=== PATIENT | male | born 1970 | race Caucasian/White ===

== ENCOUNTER 2021-10-20 18:38 | Emergency (ER) | payer MEDICARE ==
[~2021-10-20] VITALS: Ht 185.4 cm; Wt 77.1 kg
[~2021-10-20 18:38] MED LIST: CEPH500 PO; CRUTCH3 USE; HYDACE5 PO; HYDACE5325 PO; HYDR1TAB94 PO; IBUP600 PO; IBUP800 PO; NAPR500 PO; NAPR550 PO; OXYACE5T PO; PENVK500 PO; RXNAPNA550 PO; RXOXYACE PO; TRAM50 PO
== END 2021-10-20 19:45 | disposition home or self-care (01) ==
LOC: ER 18:38
DX: S01.81XA Laceration without foreign body of other part of head, initial encounter (principal); S40.812A Abrasion of left upper arm, initial encounter; F17.220 Nicotine dependence, chewing tobacco, uncomplicated; W18.30XA Fall on same level, unspecified, initial encounter
CPT/HCPCS: 12013; 90714; 99283-25

== ENCOUNTER 2023-02-26 10:19 | Inpatient (IN) | payer MEDICARE, OTHER ==
[2023-02-26] VITALS (42 sets, daily range): BP systolic 66–124; BP diastolic 37–78
[~2023-02-26] VITALS: Ht 182.9 cm; Wt 85.3 kg
[2023-02-26 10:44] LABS: Hemoglobin 12.3 g/dL (13.5-17.5); Mean Corpuscular HGB 33.9 pg (26.0-34.0); Mean Corpuscular HGB Conc 34.2 g/dL (31.5-36.5); Mean Corpuscular Volume 99 fL (80-100); Mean Platelet Volume 10.8 fL (9.1-12.4); RDW Coefficient Variation 12.7 % (11.7-14.2); RDW Standard Deviation 46.5 fL (35.1-46.3); Red Blood Cell Count 3.63 M/mm3 (4.30-5.90); White Blood Cell Count 20.03 K/mm3 (4.00-11.30)
[2023-02-26 11:04] LABS: Albumin, Blood 2.6 g/dL (3.4-5.0); Albumin/Globulin Ratio 0.8 (0.8-1.8); Bilirubin, Total 0.4 mg/dL (0.1-1.0); Bun/Creatinine Ratio 10.2 (12.0-20.0); Calcium, Blood 6.8 mg/dL (8.5-10.1); Creatinine, Blood 4.61 mg/dL (0.60-1.20); Globulin, Blood 3.4 g/dL (2.2-4.0); Potassium, Blood 4.6 mmol/L (3.5-5.5)
[2023-02-26 11:08] LABS: Platelet Count 38 K/mm3 (150-400)
[2023-02-26 12:05] LABS: International Normalized Ratio 1.17; Prothrombin Time Results 12.2 Sec (9.7-11.5)
[2023-02-26 12:40] LABS: BAND PERCENT MAN 22 % (0-8); BASOPHILS PERCENT MAN 0 % (0-2); EOSINOPHILS PERCENT MAN 0 % (0-6); LYMPHOCYTES PERCENT MAN 2 % (21-46); METAMYELOCYTE PERCENT MAN 6 % (0-0); MONOCYTES PERCENT MAN 5 % (4-13); NEUTROPHILS ABSOLUTE MAN 17.42 K/mm3 (1.96-9.15); SEG NEUTROPHILS PERCENT MAN 65 % (41-73); TOTAL CELLS COUNTED 100
--- NOTE | 2023-02-26 14:00 | NUR ---
INITIAL ASSESSMENT PATIENT ARRIVED TO UNIT AT 1340 FROM ER. PATIENT ALERT AND ORIENTED X 4. PATIENT HAS TEMP OF 99.1 DEGREES FAHRENHEIT. PATIENT WEAK BUT ABLE TO MOVE ALL EXTREMITIES. PATIENT STATES HE HAS ALL OVER BODY DISCOMFORT AND ACHES. PATIENT SATTING 90% AND GREATER ON RA. LUNGS CLEAR THROUGHOUT. PATIENT IN ST, HR IN THE LOW 100S. SBP 80S TO 90S. PATIENT ON LEVOPHED AT 18 MCG/ MINUTE. PATIENT COMPLAINS OF SLIGHT NAUSEA. PATIENT'S GLANS AND SHAFT OF PENIS PURPLE, FIRM AND SWOLLEN FROM A BOTTLE BEING STUCK ON IT; ER CUT BOTTLE OFF. PIC PLACED IN CHART. DRESSING PLACED TO PENIS. PATIENT STATES THAT COLOR HAS IMPROVED SINCE PLASTIC BOTTLE CUT OFF. PATIENT STATES IT HAS BEEN DIFFICULT TO VOID WITH PENIS SWOLLEN. NO VOID YET THIS SHIFT. PATIENT ORIENTED TO UNIT, ROOM AND CALL LIGHT. BED LOW, CALL LIGHT IN REACH, BED ALARM ON. WILL CONTINUE TO MONITOR PATIENT FREQUENTLY THROUGHOUT SHIFT.
[2023-02-26 15:43] LABS: Bun/Creatinine Ratio 11.8 (12.0-20.0); Calcium, Blood 6.5 mg/dL (8.5-10.1); Creatinine, Blood 4.25 mg/dL (0.60-1.20); Potassium, Blood 4.7 mmol/L (3.5-5.5)
--- NOTE | 2023-02-26 18:58 | NUR ---
SHIFT SUMMARY PATIENT REMAINED ALERT AND ORIENTED X 4. PATIENT HAD SLIGHT FEVER WHEN FIRST ARRIVED BUT IS NOW AFEBRILE. PATIENT REMAINS WEAK BUT ABLE TO MOVE ALL EXTREMITIES AND REPOSITION SELF IN BED. PATIENT ON RA WHILE AWAKE AND ON 3 L NC WITH SLEEP. PATIENT ST, HR IN THE LOW 100S. PATIENT MAX 20 MCG/ MINUTE OF LEVOPHED AND ON VASOPRESSIN THIS SHIFT. LEVOPHED AND VASOPRESSIN ARE NOW BOTH ON SB. PATIENT RECEIVED 2 L LR BOLUS THIS SHIFT. NO BM THIS SHIFT. PATIENT VOIDED 300 MLS OF BROWN COLORED URINE. PICS PLACED IN CHART OF PENIS. PENIS DRESSING REMAINS CLEAN AND INTACT. R AC IV INFILTRATED THIS SHIFT; CAUGHT VERY QUICKLY AND REGITINE GIVEN. ABD US AND ECHO PERFORMED THIS SHIFT. BED LOW, CALL LIGHT IN REACH. REPORT WILL BE GIVEN TO ASSUMING ASSET PROTECTION SPECIALIST NURSE SHORTLY.
--- NOTE | 2023-02-26 20:52 | NUR ---
PATIENT AWAKE, A&O X3. DRESSING ON PENIS SATURATED WITH SEROSANG DRAINAGE KERLIX PART OF DRESSING CHANGED, LOOSELY WRAPPED . BLADDER SCAN DONE SHOWING 184 CC URINE. LEVOPHED RESTARTED AT 2 MCG DUE TO HYPOTENSION. PATIENT PASSING LARGE LIQUID ESCALERA BM, PATIENT VERBALIZED THAT HE HAS BEEN HAVING "BEER SHITS". PATIENT REQUESTING SOMETHING TO HELP HIM SLEEP, LIBRIUM PO GIVEN.
[2023-02-26 21:35] LABS: Source, Urine Clean Catch
[2023-02-26 21:43] LABS: Bilirubin, Urine Neg (Neg); Blood, Urine 5+ (Neg); Glucose Qualitative, Urine Neg (Neg); Ketones, Urine Neg (Neg); Leukocyte Esterase, Urine 3+ (Neg); Nitrite, Urine Neg (Neg); Protein, Urine 2+ (Neg); Specific Gravity, Urine 1.015 (1.003-1.022); Urobilinogen, Urine NORM (Normal)
[2023-02-26 21:49] LABS: Appearance, Urine Hazy (Clear); Color, Urine Yellow (P-Yellow)
[2023-02-26 21:51] LABS: Bacteria Mod /hpf; Red Blood Cells, Urine 50-100 /hpf (0-2); Squamous Epithelial Cells Rare /hpf (Few); Transitional Epithelial Cells Few /hpf (0-Rare); White Blood Cells, Urine 50-100 /hpf (0-5)
[2023-02-26 22:00] LABS: U Amphetamine Screen DETECTED; U Barbituate Screen Not Detected; U Benzodiazapine Screen Not Detected; U Buprenorphine Screen Not Detected; U Cannabinoids Screen Not Detected; U Cocaine Screen Not Detected; U Methadone Screen Not Detected; U Methamphetamine Screen DETECTED; U Opiates Screen Not Detected; U Oxycodone Screen Not Detected; U Phencyclidine Screen Not Detected; U Propoxyphene Screen Not Detected
[2023-02-27] VITALS (36 sets, daily range): BP systolic 76–137; BP diastolic 51–82
[2023-02-27 04:38] LABS: Hematocrit 31.5 % (37.0-53.0); Hemoglobin 11.2 g/dL (13.5-17.5); Mean Corpuscular HGB Conc 35.6 g/dL (31.5-36.5); Mean Corpuscular Volume 96 fL (80-100); Mean Platelet Volume 11.7 fL (9.1-12.4); RDW Coefficient Variation 12.9 % (11.7-14.2); RDW Standard Deviation 45.4 fL (35.1-46.3); Red Blood Cell Count 3.29 M/mm3 (4.30-5.90); White Blood Cell Count 14.77 K/mm3 (4.00-11.30)
[2023-02-27 04:43] LABS: Platelet Count 30 K/mm3 (150-400)
[2023-02-27 04:58] LABS: Alanine Aminotransfer (ALT/SGP 48 U/L (12-78); Albumin, Blood 2.3 g/dL (3.4-5.0); Albumin/Globulin Ratio 0.7 (0.8-1.8); Alk Phos 53 U/L (50-136); Anion Gap 13 mmol/L (6-16); Aspartate Aminotrans (AST/SGOT 61 U/L (12-37); Bilirubin, Total 0.4 mg/dL (0.1-1.0); Blood Urea Nitrogen 53 mg/dL (8-24); Bun/Creatinine Ratio 14.6 (12.0-20.0); CO2, Blood 18 mmol/L (21-32); Calcium, Blood 6.9 mg/dL (8.5-10.1); Chloride, Blood 106 mmol/L (98-108); Creatinine, Blood 3.64 mg/dL (0.60-1.20); Globulin, Blood 3.1 g/dL (2.2-4.0); Glomerular Filtration Rate 19 (60-); Glucose, Blood 96 mg/dL (70-99); Potassium, Blood 3.7 mmol/L (3.5-5.5); Sodium, Blood 137 mmol/L (136-145); Total Protein, Blood 5.4 g/dL (6.4-8.2); Vancomycin, Random 12.8 ug/mL
[2023-02-27 05:24] LABS: BAND PERCENT MAN 21 % (0-8); BASOPHILS PERCENT MAN 0 % (0-2); EOSINOPHILS PERCENT MAN 0 % (0-6); LYMPHOCYTES ABSOLUTE MAN 0.59 K/mm3 (0.84-5.20); LYMPHOCYTES PERCENT MAN 4 % (21-46); METAMYELOCYTE ABSOLUTE MAN 0.88 K/mm3 (0.00-0.00); METAMYELOCYTE PERCENT MAN 6 % (0-0); MONOCYTES ABSOLUTE MAN 0.29 K/mm3 (0.16-1.47); MONOCYTES PERCENT MAN 2 % (4-13); MYELOCYTE ABSOLUTE MAN 0.14 K/mm3 (0.00-0.00); MYELOCYTE PERCENT MAN 1 % (0-0); NEUTROPHILS ABSOLUTE MAN 12.84 K/mm3 (1.96-9.15); SEG NEUTROPHILS PERCENT MAN 66 % (41-73); TOTAL CELLS COUNTED 100
--- NOTE | 2023-02-27 06:28 | NUR ---
SUMMARY PATIENT SLEEPING OFF AND ON T/O NIGHT. NIGHT HAS PROGRESSED PATIENT HAS BEEN ABLE TO VOID EASIER. USING URINAL WITH ASSIST TO HELP KEEP DRESSING CD&I. PATIENT HAS HAD LIQUID GREEN STOOL SEVERAL TIMES DURING THE NIGHT, AT TIMES INCONT OF STOOL. PATIENT MEDICATED ONCE WITH LIBRIUM FOR ANXIETY AT THE BEGINNING OF SHIFT. LEVOPHED OFF AND BP MORE STABLE NIGHT PROGRESSED. DRESSING CHANGED ONCE DURING THE NIGHT, CONTINUES TO HAVE CLEAR TO YELLOW DRAINAGE.
--- NOTE | 2023-02-27 08:47 | NUR ---
INITIAL ASSESSMENT AND SHIFT SUMMARY PATIENT ALERT AND ORIENTED X 4. PATIENT HAS TEMP OF 99.5 DEGREES FAHRENHEIT THIS AM. CIWA SCORE OF 3. PATIENT ON RA WHILE AWAKE AND ON 2 L NC WITH SLEEP. PATIENT IN SR, HR IN THE 80S. SBP IN THE 1-TEENS. PATIENT OFF LEVOPHED SINCE BEGINNING OF COOK MORNING. POOR APPETITE. PATIENT HAS BEEN HAVING GREEN LIQUID STOOLS. PENIS STILL SWOLLEN, PURPLE AND FIRM; COLOR HAS IMPROVED SINCE YESTERDAY; DRESSING IN PLACE. SCATTERED BRUISES NOTED. NS TKO. BED LOW, CALL LIGHT IN REACH. REPORT GIVEN TO ASSUMING NURSE.
--- NOTE | 2023-02-27 09:00 | NUR ---
ASSUMPTION OF CARE/TRANSFER TO PCU PT TRANSFERRED TO PCU 17 AT 0915. HE IS ALERT AND ORIENTED, ALTHOUGH SOMEWHAT DROWSY AND REPORTS FEELING "TIRED AND WEAK". CIWA 3. PT REPOSITIONS SELF IN BED AND ASSISTS WITH CARE. LUNGS ARE CLEAR THROUGHOUT. PT ON RA WITH SPO2 >95%. BOWEL TONES HYPOACTIVE, ABDOMEN SOFT. PT REPORTS DECREASED APPETITE. PT HAD 1 LIQUID GREEN STOOL. PENILE DRESSING C/D/I. PT VOIDED 400ML YELLOW URINE, DENIES DYSURIA. BED IN LOW POSITION, BED ALARM ON, CALL LIGHT WITHIN REACH.
--- NOTE | 2023-02-27 17:28 | NUR ---
SHIFT SUMMARY PT IS ALERT AND ORIENTED. SOMEWHAT WITHDRAWN BUT PARTICIPATES IN CONVERSATION. MOST RECENT CIWA SCORE 1. LUNGS ARE CLEAR THROUGHOUT. RA WITH SPO2 >95%. NSR ON MONITOR WITH RATE IN 90S. BP STABLE. IMPROVED APPETITE. PT REPORTS MOUTH PAIN DUE TO SORES ON TONGUE AND BROKEN/MISSING TEETH. EVALUATED BY KAYLI DENTAL HYGEINIST. ORDER RECEIVED FOR PRN MAGIC MOUTHWASH FROM HOSPITALIST. PT CONTINUES TO HAVE LIQUID/JELLY GREEN STOOL. PT HAS VOIDED SEVERAL TIMES THROUGHOUT THE DAY WITHOUT PAIN OR DIFFICULTY. URINE IS CLEAR/YELLOW. PENIS AND GLANS REMAIN SWOLLEN WITH RED/PURPLE DISCOLORATION. AREA CONTINUES TO HAVE CLEAR AND YELLOW DRAINAGE. VARIOUS ABRASIONS AND BLISTERS. DRESSING CHANGED THIS EVENING. BED IN LOW POSITION, CALL LIGHT WITHIN REACH.
--- NOTE | 2023-02-27 21:32 | NUR ---
SAFETY & EDUCATION PT & FAMILY EDUCATED RE: IGINITION SOURCES AND RISK OF INJURY WHILE OXYGEN IS IN USE. PT DENIES SMOKING & PT AND FAMILY VERBALIZE UNDERSTANDING.
[2023-02-28 03:44] VITALS: BP 117/80
[2023-02-28 04:24] LABS: Hemoglobin 11.3 g/dL (13.5-17.5); Mean Corpuscular HGB 33.7 pg (26.0-34.0); Mean Corpuscular HGB Conc 35.3 g/dL (31.5-36.5); Mean Corpuscular Volume 96 fL (80-100); Mean Platelet Volume 12.7 fL (9.1-12.4); RDW Coefficient Variation 13.1 % (11.7-14.2); RDW Standard Deviation 46.4 fL (35.1-46.3); Red Blood Cell Count 3.35 M/mm3 (4.30-5.90); White Blood Cell Count 13.63 K/mm3 (4.00-11.30)
[2023-02-28 04:35] LABS: Platelet Count 31 K/mm3 (150-400)
--- NOTE | 2023-02-28 04:51 | NUR ---
SHIFT SUMMARY SEE PREVIOUS NOTE. PT A&Ox4, CALLS AND COMMUNICATES NEEDS APPROPRIATELY. PT SLOW TO RESPOND AND WITHDRAWN AT TIMES. BP STABLE, SINUS 80's, DENIES CP/PRESSURE. SpO2> 92% RA, DENIES SOB. CONTINENT OF URINE, USES URINAL AT BEDSIDE WITH ASSISTANCE. NO BM THIS SHIFT. PENILE DRESSING REMAINS C/D/I. CIWA STABLE. NO OTHER EVENTS, WILL REPORT TO ONCOMING RN.
[2023-02-28 04:55] LABS: Alanine Aminotransfer (ALT/SGP 85 U/L (12-78); Albumin/Globulin Ratio 0.6 (0.8-1.8); Alk Phos 248 U/L (50-136); Anion Gap 8 mmol/L (6-16); Aspartate Aminotrans (AST/SGOT 134 U/L (12-37); Bilirubin, Total 1.1 mg/dL (0.1-1.0); Blood Urea Nitrogen 47 mg/dL (8-24); Bun/Creatinine Ratio 21.1 (12.0-20.0); CO2, Blood 21 mmol/L (21-32); Calcium, Blood 7.8 mg/dL (8.5-10.1); Chloride, Blood 111 mmol/L (98-108); Creatinine, Blood 2.23 mg/dL (0.60-1.20); Globulin, Blood 3.5 g/dL (2.2-4.0); Glomerular Filtration Rate 35 (60-); Glucose, Blood 109 mg/dL (70-99); Potassium, Blood 3.3 mmol/L (3.5-5.5); Sodium, Blood 140 mmol/L (136-145); Total Protein, Blood 5.5 g/dL (6.4-8.2); Vancomycin, Random 17.6 ug/mL
[2023-02-28 05:19] LABS: BAND PERCENT MAN 5 % (0-8); BASOPHILS PERCENT MAN 0 % (0-2); EOSINOPHILS ABSOLUTE MAN 0.27 K/mm3 (0.00-0.68); EOSINOPHILS PERCENT MAN 2 % (0-6); LYMPHOCYTES ABSOLUTE MAN 0.95 K/mm3 (0.84-5.20); LYMPHOCYTES PERCENT MAN 7 % (21-46); METAMYELOCYTE ABSOLUTE MAN 0.13 K/mm3 (0.00-0.00); METAMYELOCYTE PERCENT MAN 1 % (0-0); MONOCYTES ABSOLUTE MAN 0.54 K/mm3 (0.16-1.47); MONOCYTES PERCENT MAN 4 % (4-13); MYELOCYTE ABSOLUTE MAN 0.13 K/mm3 (0.00-0.00); MYELOCYTE PERCENT MAN 1 % (0-0); NEUTROPHILS ABSOLUTE MAN 11.58 K/mm3 (1.96-9.15); SEG NEUTROPHILS PERCENT MAN 80 % (41-73); TOTAL CELLS COUNTED 100
[2023-02-28 06:35] LABS: Magnesium, Blood 1.7 mg/dL (1.6-2.4)
[2023-02-28 07:32] VITALS: BP 111/75
[2023-02-28 11:41] VITALS: BP 121/92
[2023-02-28 16:09] VITALS: BP 115/80
--- NOTE | 2023-02-28 17:42 | NUR ---
SHIFT SUMMARY; ASSUMED CARE AT 0700. A/A/OX4. COOPERATIVE WITH CARE, CIWA 0-3 DURING SHIFT. UP TO RECLINER CHAIR FOR SEVERAL HOURS, USES URINAL AT BEDSIDE, VSS. PENIS REMAINS SWOLLEN BUT IS ABLE TO URINATE WITHOUT DIFFICULTY. WILL CONTINUE TO MONITOR AND TREAT UNTIL CHANGE OF SHIFT.
[2023-02-28 19:38] VITALS: BP 123/81
[2023-02-28 23:29] VITALS: BP 124/90
[2023-03-01 03:16] VITALS: BP 117/76
[2023-03-01 03:29] LABS: BASOPHILS ABSOLUTE AUTO 0.06 K/mm3 (0.00-0.23); BASOPHILS PERCENT AUTO 0 % (0-2); Hematocrit 33.2 % (37.0-53.0); Hemoglobin 11.8 g/dL (13.5-17.5); LYMPHOCYTES PERCENT AUTO 6 % (21-46); MONOCYTES ABSOLUTE AUTO 1.71 K/mm3 (0.16-1.47); MONOCYTES PERCENT AUTO 11 % (4-13); Mean Corpuscular HGB 33.2 pg (26.0-34.0); Mean Corpuscular HGB Conc 35.5 g/dL (31.5-36.5); Mean Corpuscular Volume 94 fL (80-100); Mean Platelet Volume 12.4 fL (9.1-12.4); NRBC ABSOLUTE 0.02 K/mm3 (0.00-0.02); NRBC Auto 0.1 /100 WBC (0.0-0.2); RDW Coefficient Variation 13.2 % (11.7-14.2); RDW Standard Deviation 46.1 fL (35.1-46.3); Red Blood Cell Count 3.55 M/mm3 (4.30-5.90); White Blood Cell Count 15.95 K/mm3 (4.00-11.30)
[2023-03-01 03:39] LABS: EOSINOPHILS ABSOLUTE AUTO 0.32 K/mm3 (0.00-0.68); EOSINOPHILS PERCENT AUTO 2 % (0-6); IMMATURE GRAN ABSOLUTE AUTO 0.16 K/mm3 (0.00-0.10); IMMATURE GRAN PERCENT AUTO 1 % (0-1); NEUTROPHILS PERCENT AUTO 80 % (41-73)
[2023-03-01 03:40] LABS: Platelet Count 36 K/mm3 (150-400)
[2023-03-01 03:50] LABS: Albumin, Blood 1.9 g/dL (3.4-5.0); Albumin/Globulin Ratio 0.5 (0.8-1.8); Bilirubin, Total 0.8 mg/dL (0.1-1.0); Bun/Creatinine Ratio 26.6 (12.0-20.0); Calcium, Blood 8.4 mg/dL (8.5-10.1); Creatinine, Blood 1.39 mg/dL (0.60-1.20); Globulin, Blood 3.6 g/dL (2.2-4.0); Potassium, Blood 3.6 mmol/L (3.5-5.5); Total Protein, Blood 5.5 g/dL (6.4-8.2)
--- NOTE | 2023-03-01 04:48 | NUR ---
SHIFT SUMMARY SEE PREVIOUS NOTE. PT A&Ox4, CALLS AND COMMUNICATES NEEDS APPROPRIATELY. PT SLOW TO RESPOND AND WITHDRAWN AT TIMES. BP STABLE, SINUS 80's, DENIES CP/PRESSURE. SpO2> 92% RA, DENIES SOB. CONTINENT OF URINE, USES URINAL AT BEDSIDE IND. NO BM THIS SHIFT. PENILE DRESSING REMAINS C/D/I. CIWA STABLE. NPO AT 0000. NO OTHER EVENTS, WILL REPORT TO ONCOMING RN.
[2023-03-01 07:45] VITALS: BP 126/79
[2023-03-01 12:53] VITALS: BP 124/93
--- NOTE | 2023-03-01 19:10 | NUR ---
SHIFT SUMMARY S/P SEPSIS, A/OX4, VSS, TOLERATING PO, DENIES PAIN, DRESSING ON PENIS CHANGED THIS SHIFT AND REPLACED WITH NEW XEROFORM AND ROLLED GUAZE, EDUCATED HIM ON THE IMPORTANCE OF CALLING IF IT STARTS TO FEEL LIKE THE DRESSING IS GETTING TIGHT IT COULD BE A SIGN OF INCREASED SWELLING, CARDIAC STRESS TEST COMPLETED TODAY WITH FINAL RESULTS OF THE TEST STILL PENDING. NO ACUTE EVENTS THIS SHIFT, CALL LIGHT IN REACH. PT DENIES HAVING ANY IGNITION SOURCES. PLEASANT AND COOPERATIVE.
[2023-03-01 20:00] VITALS: BP 138/91
[2023-03-02] VITALS (7 sets, daily range): BP systolic 121–147; BP diastolic 82–93
[2023-03-02 04:40] LABS: Hematocrit 35.7 % (37.0-53.0); Hemoglobin 12.7 g/dL (13.5-17.5); Mean Corpuscular HGB 33.6 pg (26.0-34.0); Mean Corpuscular HGB Conc 35.6 g/dL (31.5-36.5); Mean Corpuscular Volume 94 fL (80-100); Mean Platelet Volume 11.7 fL (9.1-12.4); Platelet Count 61 K/mm3 (150-400); RDW Coefficient Variation 13.6 % (11.7-14.2); RDW Standard Deviation 47.6 fL (35.1-46.3); Red Blood Cell Count 3.78 M/mm3 (4.30-5.90); White Blood Cell Count 20.33 K/mm3 (4.00-11.30)
[2023-03-02 04:59] LABS: Albumin, Blood 1.8 g/dL (3.4-5.0); Albumin/Globulin Ratio 0.5 (0.8-1.8); Bilirubin, Total 0.5 mg/dL (0.1-1.0); Bun/Creatinine Ratio 23.3 (12.0-20.0); Calcium, Blood 8.3 mg/dL (8.5-10.1); Creatinine, Blood 1.03 mg/dL (0.60-1.20); Globulin, Blood 3.5 g/dL (2.2-4.0); Potassium, Blood 3.6 mmol/L (3.5-5.5); Total Protein, Blood 5.3 g/dL (6.4-8.2)
[2023-03-02 05:40] LABS: BAND PERCENT MAN 12 % (0-8); BASOPHILS PERCENT MAN 0 % (0-2); EOSINOPHILS ABSOLUTE MAN 1.21 K/mm3 (0.00-0.68); EOSINOPHILS PERCENT MAN 6 % (0-6); LYMPHOCYTES ABSOLUTE MAN 1.42 K/mm3 (0.84-5.20); LYMPHOCYTES PERCENT MAN 7 % (21-46); MONOCYTES ABSOLUTE MAN 2.43 K/mm3 (0.16-1.47); MONOCYTES PERCENT MAN 12 % (4-13); NEUTROPHILS ABSOLUTE MAN 15.24 K/mm3 (1.96-9.15); SEG NEUTROPHILS PERCENT MAN 63 % (41-73); TOTAL CELLS COUNTED 100
--- NOTE | 2023-03-02 06:14 | NUR ---
SHIFT SUMMARY PT A&O X4. VSS; BP IN 130'S, SR WITH HR IN 60'S TO 70'S. PT ON RA, SPO2 97-100%. PT DENIES SOB. DENIES CP OR PRESSURE. DENIES N/V, DIZZINESS. PT TEMP MAX OF 99.3, BUT CAME BACK DOWN. PT PENIS REMAINS SWOLLEN WITH REDNESS, XEROFORM IN PLACE AND WRAPPED IN GAUZE, PER DAYSHIFT. THIS RN ASSESSED AREA THROUGHOUT SHIFT, NO CHANGES. DRESSING C/D/I. PT REPORTS PAIN IS "TOLERABLE". EDUCATION PROVIDED ABOUT HYGIENE AND INFECTION. PT SLEPT WELL THROUGHOUT SHIFT. NO ACUTE CHANGES. ABX PER EMAR. PT PO INTAKE GOOD, ENCOURAGED TO DRINK WATER. PT VOIDING WELL USING URINAL AT BEDSIDE INDEPENDENTLY. NO BM THIS SHIFT. CALL LIGHT IN REACH. WILL UPDATE ONCOMING RN
--- NOTE | 2023-03-02 10:47 | NUR ---
AM NOTE: NO ACUTE CHANGE SINCE SHIFT CHANGE, PT HAS BEEN COOPERATIVE AND PLEASENT A&O X4, ABLE TO ANSWER QUESTIONS APPROPRIATELY. VITALS HRR SR 60'S, SBP 120'S, SATS ABOVE 95% ON RA, AFEBRILE. DR KAN AND DR LIRIANO CAME AND SAW PT THIS MORNING SWITCHED UNASYN TO ROCEPHIN FOR E COLI INFECTION. PT HAS BEEN AMBULATING TO THE BATHROOM MINIMAL ASSIST VIA WALKER. NO OTHER ISSUES REPORTED. CI[facility] NO S/S AT THIS TIME. BED ALARM FOR SAFETY. CALLS APPROPRIATELY, CALL LIGHTS IN REACH WILL MONITOR
--- NOTE | 2023-03-02 16:56 | NUR ---
SHIFT SUMMARY THIS NURSE ASSUMED CARE AT APPROX 1415. PT IS ALERT AND ORIENTED X 4, HE IS ABLE TO SHIFT POSITION INDEPENDENTLY IN BED AND HAS REMAINED IN BED SINCE THIS NURSE ASSUMED CARE. VSS, HE IS ON RA W/ SPO2 AT 100%. HE DENIED FEELINGS OF PAIN, HE DENIED FEELING SOB, HE DENIES FEELINGS OF NAUSEA, NO COUGH NOTED. HE HAS USED THE BEDSIDE URINAL TO VOID. IV IS SALINE LOCKED. PICC LINE IS SALINE LOCKED. WILL CONTINUE TO MONITOR AND REPORT TO ONCOMING RN. CALL LIGHT IS W/IN REACH.
[2023-03-03 05:34] VITALS: BP 121/72
--- NOTE | 2023-03-03 06:14 | NUR ---
SHIFT SUMMARY PT A&O X4. VSS THROUGHOUT SHIFT. NO ACUTE CHANGES. PT ENCOURAGED TO AMBULATE TO RESTROOM W/FWW RATHER THAN USE URINAL. PT AGREED AND IS COOPERATIVE. PT HAD BM X2; LOOSE, GREEN/BROWN IN COLOR. PT HAS GOOD PO INTAKE AND GOOD OUTPUT. PT PENIS STILL RED AND SWOLLEN; THIS RN CHANGED DRESSING THIS SHIFT. PT DENIES PAIN. PT DENIES GENERAL PAIN, CP OR PRESSURE. DENIES N/V. PT REPORTS "SOPME ABDOMINAL PAIN WHEN HE EATS". STATES THIS IS NOT "NEW. CALL LIGHT IN REACH AND PT ABLE TO MAKE NEEDS KNOWN. PT EDUCATED ON IGNITION RISKS. PT VERBALIZES UNDERSTANDING AND DENIES SMOKING OR IGNITION SOURCES.
[2023-03-03 06:17] LABS: Hematocrit 36.9 % (37.0-53.0); Hemoglobin 12.6 g/dL (13.5-17.5); Mean Corpuscular HGB 32.7 pg (26.0-34.0); Mean Corpuscular HGB Conc 34.1 g/dL (31.5-36.5); Mean Corpuscular Volume 96 fL (80-100); Mean Platelet Volume 11.6 fL (9.1-12.4); Platelet Count 112 K/mm3 (150-400); RDW Coefficient Variation 13.8 % (11.7-14.2); RDW Standard Deviation 48.7 fL (35.1-46.3); Red Blood Cell Count 3.85 M/mm3 (4.30-5.90)
[2023-03-03 06:36] LABS: Albumin, Blood 1.9 g/dL (3.4-5.0); Albumin/Globulin Ratio 0.5 (0.8-1.8); Bilirubin, Total 0.4 mg/dL (0.1-1.0); Bun/Creatinine Ratio 16.8 (12.0-20.0); Calcium, Blood 8.4 mg/dL (8.5-10.1); Creatinine, Blood 0.95 mg/dL (0.60-1.20); Globulin, Blood 3.5 g/dL (2.2-4.0); Potassium, Blood 3.3 mmol/L (3.5-5.5); Total Protein, Blood 5.4 g/dL (6.4-8.2)
[2023-03-03 06:41] LABS: BAND PERCENT MAN 6 % (0-8); BASOPHILS PERCENT MAN 0 % (0-2); EOSINOPHILS ABSOLUTE MAN 0.95 K/mm3 (0.00-0.68); EOSINOPHILS PERCENT MAN 5 % (0-6); LYMPHOCYTES % ATYPICAL MANUAL 1 % (0-0); LYMPHOCYTES ABSOLUTE MAN 2.67 K/mm3 (0.84-5.20); LYMPHOCYTES PERCENT MAN 13 % (21-46); MONOCYTES ABSOLUTE MAN 1.33 K/mm3 (0.16-1.47); MONOCYTES PERCENT MAN 7 % (4-13); NEUTROPHILS ABSOLUTE MAN 14.13 K/mm3 (1.96-9.15); SEG NEUTROPHILS PERCENT MAN 68 % (41-73); TOTAL CELLS COUNTED 100
[2023-03-03 07:27] VITALS: BP 123/75
--- NOTE | 2023-03-03 11:04 | NUR ---
AM NOTES: NO ACUTE EVENTS SINCE SHIFT CHANGE VITALS HAS BEEN STABLE, STATUS CHANGED TO MEDICAL WITH NO TELE. PT WAS C/O SORENESS ON THE LIPS AND CHIN PT HAS SOME ALMOST DRIED BLISTERS/ RASH PHOTOS IN THE CHART PROVIDERS MADE AWARE. PT HAS BEEN USING URINAL FOR VOIDING SBA FOR TRANSFERS, ATE BREAKFAST WITH NO ISSUES. PT RESTING IN BED CALL LIGHTS IN REACH, BED ALARM ON FOR SAFETY, WILL CONTINUE TO MONITOR
[2023-03-03] MEDS ORDERED: ACYC400 PO (14:54)
[2023-03-03] MEDS ORDERED: LEVO750 PO (14:55)
[2023-03-03] MEDS ORDERED: METO25ER PO (14:56)
[2023-03-03] MEDS ORDERED: LISI5 PO (14:56)
[2023-03-03] MEDS ORDERED: VISBIOME 112.51 EACH PO (14:57)
[2023-03-03] MEDS ORDERED: ASPI81CH PO (15:08)
[2023-03-03] MEDS ORDERED: NYST237S PO (15:10)
[2023-03-03 15:45] VITALS: BP 132/95
--- NOTE | 2023-03-03 16:55 | NUR ---
PT DISCHARGED TO HOME WITH DISCHARGE ORDERS. PRESCRIPTION SENT TO [facility]. [facility] REFERRAL [facility]. INSTRUCTED PT TO GET A PCP AND CARDIOLOGY REFERRAL ALSO APPT [facility]. PENILE DRESSING WAS CHANGED PRIOR TO PT DISCHARGING, SENT PT WITH SOME DRESSINGS SUPPLIES WELL. ALL NEW MEDICATION AND INSTRUCTION DISCLOSED WITH THE PT AND BROTHER AT THE BEDSIDE. PT ACCOMPANIED VIA WHEELCHAIR FOR TRANSPORT ALL BELONGINGS SENT WITH THE PT.
== END 2023-03-03 16:29 | disposition home or self-care (01) | DRG 871 ==
LOC: ER 10:19 → ICUE 12:32 → PCU 12:32 → ICUE 13:37 → PCU 02-27 09:16
PROVIDERS: Emergency Medicine; Family Medicine; Pharmacist; Student in an Organized Health Care Education/Training Program; ADMIT Hospitalist
PROC: 3E03329 Introduction of Other Anti-infective into Peripheral Vein, Percutaneous Approach (ICD-10-PCS; principal; 2023-02-26)
PROC: 3E033XZ Introduction of Vasopressor into Peripheral Vein, Percutaneous Approach (ICD-10-PCS; 2023-02-26)
DX: A41.51 Sepsis due to Escherichia coli [E. coli] (principal); I21.A1 Myocardial infarction type 2; R65.21 Severe sepsis with septic shock; N17.9 Acute kidney failure, unspecified; E87.20 Acidosis, unspecified; E87.1 Hypo-osmolality and hyponatremia; I50.20 Unspecified systolic (congestive) heart failure; I42.0 Dilated cardiomyopathy; F17.200 Nicotine dependence, unspecified, uncomplicated; Z53.1 Procedure and treatment not carried out because of patient's decision for reasons of belief and group pressure; F10.20 Alcohol dependence, uncomplicated; D69.6 Thrombocytopenia, unspecified; S30.93XA Unspecified superficial injury of penis, initial encounter; B00.1 Herpesviral vesicular dermatitis; F15.10 Other stimulant abuse, uncomplicated; R77.8 Other specified abnormalities of plasma proteins; R74.01 Elevation of levels of liver transaminase levels; X58.XXXA Exposure to other specified factors, initial encounter
CPT/HCPCS: 36415; 36569; 51798; 71045; 76705; 78452; 80048; 80053; 80202; 81001; 82533; 83605; 83735; 84484; 85025; 85384; 85610; 85730; 87040; 87077; 87086; 87186; 93005; 93010; 93017; 96361; 96365; 96367; 96372-59; 96375; 97110; 97162; 97166; 97530; 97535; 99291-25; 99292; A9270; A9500; C1751; C8929; C9113; J0295; J0696; J2060; J2760; J2785; J3370; J7030; J7050; J7060; J7120; Q9957